=== PATIENT | male | born 1940 | race Caucasian/White ===

== ENCOUNTER 2017-03-19 05:44 | Day surgery (SDC) | payer OTHER ==
[~2017-03-19] VITALS: Ht 182.9 cm; Wt 87.3 kg
[~2017-03-19 05:44] MED LIST: AMLO5TAB96 PO; ASPI325T PO; ATEN1TAB74 PO; ATOR20TA42 PO; CLOP75 PO; ENAL20TA81 PO; LORA-474 PO
[2017-03-19] MEDS ORDERED: CHLORHEXIDINE GLUCONATE 2 % 1 PACK (2 CLOTHS) TOPICAL PRN (06:15)
[2017-03-19] MEDS ORDERED: LACTATED RINGER'S 1000 ML IV PRN (06:15)
[2017-03-19] MEDS ORDERED: SODIUM CHLORID 0.9% 500 ML IV PRN (06:15)
[2017-03-19] MEDS ORDERED: INSULIN HUMAN REGULAR 1,000 UNITS/10 ML VIAL SQ PRN (06:15)
[2017-03-19] MEDS ORDERED: POVIDONE IODINE 5% (ANTISEPSIS KIT) 4 APPLICATIONS EACH NARE PRN (06:15)
[2017-03-19] MEDS ORDERED: METOPROLOL TARTRATE 25 MG TAB PO PRN (06:15)
[2017-03-19 06:41] VITALS: BP 161/74; PULSE 55; RESP 17; TEMP 98.2; O2SAT 99
[2017-03-19] MEDS ORDERED: OCUVTAB4 PO (06:55)
[2017-03-19] MEDS ORDERED: BUPR150CR PO (06:55)
[2017-03-19] MEDS ORDERED: ASPI81TA11 PO (06:55)
[2017-03-19] MEDS ORDERED: SIMV20TA PO (06:55)
[2017-03-19] MEDS ORDERED: ABIL15TA2 PO (06:55)
[2017-03-19] MEDS ORDERED: PRIM50TA5 PO (06:55)
[2017-03-19] MEDS ORDERED: ESCI10TA PO (06:55)
[2017-03-19] MEDS ORDERED: ENAL20TA PO (06:55)
[2017-03-19] MEDS ORDERED: AMLO5TAB2 PO (06:55)
[2017-03-19 07:38] LABS: AUTOMATED NEUTROPHIL # 3.3 TH/MM3 (1.8-7.7); BASOPHIL % 0.8 % (0.0-2.0); EOSINOPHIL # 0.4 TH/MM3 (0-0.4); EOSINOPHIL % 7.3 % (0.0-4.0); HEMATOCRIT 37.2 % (39.0-51.0); HEMO FLAGS DIFF FINAL; LYMPH % 28.3 % (9.0-44.0); LYMPHOCYTE # 1.7 TH/MM3 (1.0-4.8); MEAN CORPUSCULAR HEMOGLOBIN 31.6 PG (27.0-34.0); MEAN CORPUSCULAR HGB CONC 33.2 % (32.0-36.0); MONO % 9.1 % (0.0-8.0); NEUT % 54.5 % (16.0-70.0); PLATELET COUNT 130 TH/MM3 (150-450); RED BLOOD COUNT 3.91 MIL/MM3 (4.50-5.90); WHITE BLOOD COUNT 6.1 TH/MM3 (4.0-11.0)
[2017-03-19 08:06] LABS: BICARBONATE 28.9 MEQ/L (21.0-32.0)
[2017-03-19 08:07] LABS: POTASSIUM 4.1 MEQ/L (3.5-5.1)
[2017-03-19] MEDS ORDERED: SODIUM CHLORID 0.9% 500 ML INJ 500 ML IV SCH (08:15)
[2017-03-19] MEDS ORDERED: LORazepam 1 MG TAB SL SCH (08:15)
[2017-03-19] MEDS ORDERED: HEPARIN-NS/PF INJ 1,500 ML ONE (09:41)
[2017-03-19] MEDS ORDERED: MIDAZOLAM HCL 2 MG/2 ML VIAL ONE (09:46)
[2017-03-19] MEDS ORDERED: ISOPROTERENOL HCL 1 MG/5 ML AMP ONE (09:53)
--- NOTE | 2017-03-19 10:53 | CATHPROC ---
[employer] HIS Report Study Information Study Number Admission Scheduled Start Study Start [id number] Mar 19 2017 5:44AM 03/19/2017 Mar 19 2017 9:23AM [place] [facility] Electrophysiology Study Admit Source Facility Department Other [facility] - Isotope Technologist Physician and Clinical Staff Initial Derek Gu Exceptional Children Teacher Jarod Hansen,RT(R) Other Anesthesia, WET ROLLER Recorder Jessica Garg,RN Scrub Tory Fernando,BRIQUETTE MOLDER TECH2 Equipment Time Director Of Elementary Education Description Size Mfg Part Number Used/Scraped [id number] 09:42 [employer], JSN, QUAD FR 5 Used *[id number] 09:42 [employer], JSN, QUAD FR 5 Used *[id number] 09:42 [employer], JSN, QUAD FR 5 Used *[id number] 09:42 [employer], JSN, QUAD FR 5 Used *[id number] 09:42 [employer] SHE[employer], EPS, FR5 FAST CATH FR 5 Used *[id number] 09:42 [employer], EPS, FR5 FAST CATH FR 5 Used *[id number] 09:42 [employer], EPS, FR5 FAST CATH FR 5 Used *[id number] 09:42 [employer], EPS, FR6 FAST CATH FR 6 Used *[id number] Medication Medication Total Dose (Bolus/Oral) Medication Total Dosage/Unit 1% XYLOCAINE 20 mL Medications (Bolus/Oral) Medication Time Given Dosage/Unit Administered By Reason 1% XYLOCAINE 03/19/2017 10:16:45 AM 20 mL Derek Mckoy 20 mL 1% XYLOCAINE given in lab by Derek Mckoy in Right Groin via Subcutaneous. Medication (Drip) Medication Time Given Dosage/Unit Concentration/Unit Diluent (ml) Solution ISUPREL 03/19/2017 10:42:23 AM 4 mcg/min 1 mg 250 NaCl .9 4 mcg/min ISUPREL given in lab by Anesthesia, WET ROLLER via Peripheral IV. Pump/Drip Flow = 60 ml/hr using NaCl .9 with a concentration of 1 mg in 250 ml. Ordered by Derek Mckoy. Reason: As per physicians verbal order. Initial Case Assessment Cardiovascular HR Rhythm NIBP Chest Pain 55 sb 195/88 0 Edema Present Skin color Skin None Normal Warm Dry Circulatory - Right Pulses Dorsalis Pedis 1 Scale (0,1,2,3,4,d) Circulatory - Left Pulses Dorsalis Pedis 1 Scale (0,1,2,3,4,d) Circulatory - Lower Extremities Color Lower Right Color Lower Left Normal Normal Neurological State Oriented to time-place- Alert Moves all extremities person Respiration - General Respiration Rate SpO2 (%) (B/min) 20 99 Final Case Assessment Cardiovascular HR Rhythm NIBP Chest Pain 89 sr 158/71 0 Edema Present Skin color Skin None Normal Warm Dry Circulatory - Right Pulses Dorsalis Pedis 1 Scale (0,1,2,3,4,d) Circulatory - Left Pulses Dorsalis Pedis 1 Scale (0,1,2,3,4,d) Circulatory - Lower Extremities Color Lower Right Color Lower Left Normal Normal Neurological State Oriented to time-place- Alert Moves all extremities person Respiration - General Respiration Rate SpO2 (%) O2 (lpm) (B/min) 16 100 6 Chronological Log Time Study Chronological Log 9:37:23 Patient arrived via Bed. 9:37:27 Patient Name, D.O.B, / Armband Verified By R.N. 9:37:29 Consent signed by the physician and the patient and verified by the Isotope Technologist staff. 9:37:31 Pre-op and post- op instructions given; patient acknowledges understanding of instructions. 9:37:34 Anesthesia at bedside. Assumes care of patient. 9:38:37 Patient has been NPO for More than 6Hrs. 9:38:38 Skin Breakdown- 9:38:39 Patient Warmer Placed on the Table. 9:38:39 Disposable Defibrillator Pads Placed On Patient. 9:38:40 Ciaran Prominences Protected 9:38:42 A # 20 IV was noted in the Wrist (right). Grade = 0 0.9ns kvo 9:38:42 A # 20 IV was noted in the Wrist (left). Grade = 0 0.9ns kvo 9:38:43 History and physical on the chart or being dictated. 9:46:59 Bilateral groins prepped with 2% chlorhexidine, and with a 3 min. waiting time. 9:49:29 Table restraints applied according to hospital policy 9:49:43 2% CHLORHEXIDINE GLUCONATE WASH AND NASAL SWIPE DONE PRIOR TO PROCEDURE. Assessment: Initial Case, HR=55 BPM, Rhythm=sb, QPJH=868/88 mmhg, Chest Pain=0, Edema=None, Col or=Normal, Skin = Warm, Dry Right Pulses: Miguel Angel Ped=1 Left Pulses: Miguel Angel Ped=1 9:49:54 Lower Right Extremities: Color=Normal Lower Left Extremities: Color=Normal Neurological: State=Alert, Ox3, [place] Respiration: Resp=20 B/min, SpO2=99 % 9:56:54 MD paged 9:59:30 Reference ECG taken 10:13:37 MD arrived. Time Out. Correct patient, procedure, procedure equipment, site and side verified with physicia n present. Time 10:16:00 concurred by MD, individual staff and WET ROLLER. Time Out #2 - Consents verified, patient in correct position, all results are labled and displa yed, safety precautions 10:16:20 taken, antibiotics administered. Time out concurred by MD, individual staff and WET ROLLER in procedu re 10:16:30 Case Start 10:16:45 20 mL 1% XYLOCAINE given in lab by Derek Mckoy in Right Groin via Subcutaneous. 10:17:08 Vascular access was obtained in the Fem Vein (right). 10:17:14 Vascular access was obtained in the Fem Vein (right). 10:17:19 Vascular access was obtained in the Fem Vein (right). 10:17:44 Vascular access was obtained in the Fem Vein (right). 10:19:54 A SHEATH, EPS, FR5 FAST CATH FR 5 was advanced into the Fem Vein (right) using the Modified Seldinger technique. 10:20:28 A SHEATH, EPS, FR5 FAST CATH FR 5 was advanced into the Fem Vein (right) using the Modified Seldinger technique. 10:20:32 A SHEATH, EPS, FR5 FAST CATH FR 5 was advanced into the Fem Vein (right) using the Modified Seldinger technique. 10:20:34 A SHEATH, EPS, FR6 FAST CATH FR 6 was advanced into the Fem Vein (right) using the Modified Seldinger technique. A CATHETER, JSN, QUAD FR 5 was advanced vis Fem Vein (right) and placed in the CS. Placement wa s visually 10:21:19 confirmed under fluoroscopy. A CATHETER, JSN, QUAD FR 5 was advanced vis Fem Vein (right) and placed in the HIS. Placement w as visually 10:21:25 confirmed under fluoroscopy. A CATHETER, JSN, QUAD FR 5 was advanced vis Fem Vein (right) and placed in the HRA. Placement w as visually 10:21:30 confirmed under fluoroscopy. A CATHETER, JSN, QUAD FR 5 was advanced vis Fem Vein (right) and placed in the RVA. Placement w as visually 10:21:35 confirmed under fluoroscopy. 10:22:34 EPS in progress. 4 mcg/min ISUPREL given in lab by Anesthesia, WET ROLLER via Peripheral IV. Pump/Drip Flow = 60 ml/hr using NaCl .9 with 10:42:23 a concentration of 1 mg in 250 ml. Ordered by Derek Mckoy. Reason: As per physicians verbal o rder. 10:46:42 Isuprel off. 10:47:00 EPS complete. 10:47:40 Catheters removed without difficulty 10:48:21 Sheaths removed; pressure applied to access sites by TF. 10:50:15 Case End 10:50:22 No case complications noted. 10:50:24 Cine recording checked. 10:51:00 DOCU called. Spoke to [facility] [employer] 10:51:17 Bedside Report will be given. 10:51:19 Defibrillator and ground pads removed. Skin intact. Assessment: Final Case, HR=89 BPM, Rhythm=sr, CYME=804/71 mmhg, Chest Pain=0, Edema=None, [place] r=Normal, Skin = Warm, Dry Right Pulses: Miguel Angel Ped=1 Left Pulses: Miguel Angel Ped=1 10:51:33 Lower Right Extremities: Color=Normal Lower Left Extremities: Color=Normal Neurological: State=Alert, Ox3, [place] Respiration: Resp=16 B/min, QiB5=690 %, O2=6 lpm 11:05:28 Sterile dressing applied to sites 11:06:23 Patient moved to [facility] End Study - Contrast Media Used In Study Contrast Total Opened (mL) Total Used (mL) Total Wasted (mL) Unspecified 0 0 0 End Study - Radiation Exposure Fluoro Time (minutes) 1.0 End Study - Sheaths Sheaths Pulled By Sheath Hold Time (min) Tory Fernando 15 End Study - Patient Disposition Complications Transferred To Interventional Outcome No Telemetry Bed successful
[2017-03-19] MEDS ORDERED: oxyCODONE/ACETAMINOPHEN 5 MG/325 MG TAB PO PRN ×2 (11:15)
[2017-03-19] MEDS ORDERED: METOCLOPRAMIDE HCL 10 MG/2 ML VIAL IV PUSH PRN (11:15)
[2017-03-19] MEDS ORDERED: SODIUM CHLOR 0.9% 250 ML INJ 250 ML IV PRN (11:15)
[2017-03-19] MEDS ORDERED: LIDOCAINE HCL 1% 50 ML VIAL INFIL PRN (11:15)
[2017-03-19] MEDS ORDERED: LORazepam 2 MG/ML VIAL IV PUSH PRN (11:15)
[2017-03-19] MEDS ORDERED: ONDANSETRON HCL 4 MG/2 ML VIAL IV PUSH PRN (11:15)
[2017-03-19] MEDS ORDERED: ATROPINE SULFATE 1 MG/ML VIAL IV PUSH PRN (11:15)
--- NOTE | 2017-03-19 12:09 | MA ---
cc: BRIANNE BLANKENSHIP M.D., HANSCY M.D. DATE 03/19/2017 PROCEDURE Electrophysiology study, CS cannulation, repeat electrophysiology study on Isuprel infusion. INDICATIONS FOR PROCEDURE Mr. Aguilar is a 76-year-old gentleman with coronary artery disease, possible infra-His disease, bradycardia, referred for electrophysiology study and possible device insertion. The risks, the nature and the benefit of the procedure are clearly stated to him. The risks include pneumothorax, cardiac perforation, stroke and even . The patient understood and agreed to proceed. PROCEDURE After written informed consent was obtained, the patient was brought to the EP Lab where he was prepped and draped in the usual sterile fashion. Conscious sedation was initiated and maintained throughout the procedure by the anesthesiologist. Once sedation was verified, the right inguinal area was anesthetized with 2% Xylocaine. Using modified Seldinger technique, the right femoral vein was cannulated on four occasions, four guidewires were advanced. Over the wire three 5 and a 6-[place] Hemaquet were advanced. Then under fluoroscopic guidance through the 5 and 6-[place] Hemaquet, four 5-[place] Thang curved quadripolar electrophysiology catheters were advanced and positioned at the His, upper right atrium, coronary sinus and right ventricular apex. Basic interval was measured. HV was slightly prolonged. I did measure the HV on multiple occasions. Then atrial pacing protocol was performed. Atrial pacing protocol consisted of incremental atrial pacing as well as program stimulation with 110 cycle length and up to one extrastimuli delivered. Wenckebach was high at baseline around 100 milliseconds. On Isuprel it was around 430 milliseconds. Then ventricular pacing protocol was performed. There was no VA conduction. No tachyarrhythmia was induced. At that point Isuprel infusion at 4 mcg, atrial pacing protocol was repeated again. I mentioned before Wenckebach was around 430 milliseconds. No tachyarrhythmia was induced. Then ventricular pacing protocol was performed. There was still no VA conduction. No tachyarrhythmia was induced. At that point the procedure was complete. All catheters were removed. The patient is going to be transferred to the recovery room. No incident reported. The patient tolerated the procedure. Blood loss minimal. No need for pacing support at this point. CONCLUSION 1. Electrocardiogram: At baseline the patient was in sinus rhythm. Postprocedure electrocardiogram was unchanged. 2. Basic Interval: Base cycle length was around 1290 milliseconds. AH was at 186 milliseconds and HV was around 76 milliseconds. HV was measured on multiple occasions. 3. Atrial Pacing Protocol: Wenckebach of the node at baseline was 900, on Isuprel it was around 430 milliseconds. No tachyarrhythmia was induced. 4. Ventricular Pacing Protocol: There was no VA at baseline. On Isuprel no tachyarrhythmia was induced. CONCLUSION 1. Negative electrophysiology study for supraventricular tachycardia. 2. Slightly prolonged HV interval. COMMENT AND RECOMMENDATION The HV is less than 80 milliseconds. The patient has no syncopal episodes. He has some symptomatic bradycardia that responds very well to Isuprel. At this point there is no need for pacing support. The patient will be observed. In the future if he presents with some dizziness and near-syncope, then pacemaker will be considered. Derek Mckoy MD HS/SSB /11:09 AM /11:56 AM
[2017-03-19] MEDS ORDERED: BACITRACIN OINT 0.9 GM PKT TOP ONE (13:00)
--- NOTE | 2017-03-19 21:05 | EKG ---
Date Performed: 03/19/2017 Time Performed: 07:08:28 PTAGE: 76 years EKG: Sinus bradycardia with 1st degree A-V block. 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
== END 2017-03-19 14:07 | disposition home or self-care (01) ==
LOC: HDIC 05:44 → HDOC 05:44
PROVIDERS: ATTEND Internal Medicine Interventional Cardiology
DX: R00.1 Bradycardia, unspecified (principal); I44.0 Atrioventricular block, first degree; I45.2 Bifascicular block; I25.10 Atherosclerotic heart disease of native coronary artery without angina pectoris; I12.9 Hypertensive chronic kidney disease with stage 1 through stage 4 chronic kidney disease, or unspecified chronic kidney disease; N18.9 Chronic kidney disease, unspecified; E78.5 Hyperlipidemia, unspecified; K21.9 Gastro-esophageal reflux disease without esophagitis; F32.9 Major depressive disorder, single episode, unspecified; Z87.891 Personal history of nicotine dependence; Z95.5 Presence of coronary angioplasty implant and graft; Z79.82 Long term (current) use of aspirin; Z79.899 Other long term (current) drug therapy
CPT/HCPCS: 80048; 85025; 85610; 85730; 93005; 93620; 93623; C1730; J1644; J2250; J3010